=== PATIENT | female | born 1965 | race Caucasian/White ===

== ENCOUNTER 2023-01-28 09:39 | Day surgery (SDC) | payer OTHER, SELFPAY ==
--- NOTE | 2023-01-27 14:45 | P.CONAN_ITS ---
Documented by User: Ashley Rincon NP 01/27/23 14:46 HPI - Anesthesia Eval Consult details Narrative: 57yo F for Colonoscopy [facility] Past Medical History Medical History (Updated 01/28/23 @ 10:48 by Eva Yu RN) Anxiety Colon polyps Follicular lymphoma HTN (hypertension) Hypothyroidism Insomnia Surgical History Surgical History (Updated 01/27/23 @ 14:41 by Janna Escoto RN) Hx of cholecystectomy Social History Social History Patient Tobacco Use Status: Never used Tobacco Use of substances other than those prescribed or required for medical reasons: No Are you DNR?: No Advance Directives: No Advance Directives Information Provided: Yes Recently lost weight without trying: No Nutrition Risks: No Nutritional Risk Meds Allergies Allergy/AdvReac Type Severity Reaction Status Date / Time No Known Allergies Allergy Verified 01/27/23 14:40 Home Medications Medication Instructions Recorded Confirmed Last Taken Type atorvastatin 40 mg tablet 40 mg PO DAILY 01/27/23 01/27/23 Unknown History carvedilol 12.5 mg tablet 12.5 mg PO BID 01/27/23 01/27/23 Unknown History lamotrigine 200 mg tablet 200 mg PO DAILY 01/27/23 01/27/23 Unknown History levothyroxine 75 mcg tablet 75 mcg PO DAILY 01/27/23 01/27/23 Unknown History omeprazole 20 mg capsule,delayed 20 mg PO DAILY 01/27/23 01/27/23 Unknown History release quetiapine 50 mg tablet (Seroquel) 50 mg PO BEDTIME 01/27/23 01/27/23 Unknown History Exam Exam Date and Time: January 27, 2023 144 Assessment and Plan Assessment Anesthesia Assessment: Chart Reviewed Documented by User: Shaista Starr MD 01/28/23 11:25 [facility] Past Medical History Medical History (Updated 01/28/23 @ 10:48 by Eva Yu RN) Anxiety Colon polyps Follicular lymphoma HTN (hypertension) Hypothyroidism Insomnia Family History Family history of problems with anesthesia: No Surgical History Surgical History (Updated 01/27/23 @ 14:41 by Janna Escoto RN) Hx of cholecystectomy History of Problems with Anesthesia: No Social History Social History Patient Tobacco Use Status: Never used Tobacco Use of substances other than those prescribed or required for medical reasons: No Are you DNR?: No Advance Directives: No Advance Directives Information Provided: Yes Recently lost weight without trying: No Nutrition Risks: No Nutritional Risk Meds Allergies Allergy/AdvReac Type Severity Reaction Status Date / Time No Known Allergies Allergy Verified 01/27/23 14:40 Home Medications Medication Instructions Recorded Confirmed Last Taken Type atorvastatin 40 mg tablet 40 mg PO DAILY 01/27/23 01/27/23 Unknown History carvedilol 12.5 mg tablet 12.5 mg PO BID 01/27/23 01/27/23 Unknown History lamotrigine 200 mg tablet 200 mg PO DAILY 01/27/23 01/27/23 Unknown History levothyroxine 75 mcg tablet 75 mcg PO DAILY 01/27/23 01/27/23 Unknown History omeprazole 20 mg capsule,delayed 20 mg PO DAILY 01/27/23 01/27/23 Unknown History release quetiapine 50 mg tablet (Seroquel) 50 mg PO BEDTIME 01/27/23 01/27/23 Unknown History Exam Airway Mallampati Class: II TM Dist: >3cm Neck ROM: Full Heart: rrr Lungs: cta Assessment and Plan Assessment Anesthesia Assessment: Anesthesia Plan Discussed Final Anesthetic Review Family History of Problems with Anesthesia: No History of Problems with Anesthesia: No NPO: Yes ASA Class: II Final Preanesthetic Review: No Changes in Pt Med Stat, Meds/Allgs Chart Reviewed, Consent Obtained/Reviewed and Anes Risks/Benef Reviewed Patient Risk: Low Procedure Risk: Low Anesthetic Plan Anesthetic Plan: MAC: Disposition: Standard PACU
[2023-01-28 10:49] VITALS: BMI 32.4
[2023-01-28 10:57] VITALS: BP 141/89; PULSE 83; RESP 16; TEMP 36.8; O2SAT 98
[2023-01-28] MEDS: Lactated Ringers 1,000 ML 100 ML IVCONT (11:21)
--- NOTE | 2023-01-28 12:26 | MHC.SHP ---
Pre-Procedural Eval Section A Date of Service: 01/28/23 The patient is an INPATIENT: Yes Changes since office visit: No Cold of Flu in the past 2 weeks, No New Medical Problems, No Changes in Medication and No Patient answered all questions The History & Physical has been completed within 30 days and I have reviewed it.: No Section B Chief Complaint: screening Allergies: Allergies Allergy/AdvReac Type Severity Reaction Status Date / Time No Known Allergies Allergy Verified 01/27/23 14:40 Plan I have reviewed the history and physical and performed a pertinent physical examination on my patient. No changes have occurred unless specified. Time Spent With Patient Time: Total time managing care of this patient today ____ minutes.
--- NOTE | 2023-01-28 13:02 | PM.OP ---
Brief Operative Note Date of Service: 01/28/23 Surgeon: Bobby Day Anesthesia: MAC Was an Risk And Compliance Analytics Director used for this Procedure?: No Estimated blood loss (mL): 0 Pathology: none sent Condition: stable Disposition: PACU
[2023-01-28 13:04] VITALS: BP 116/69; PULSE 76; RESP 16; TEMP 36.4; O2SAT 96
[2023-01-28 13:21] VITALS: BP 132/84; PULSE 77; RESP 16; TEMP 36.4; O2SAT 99
--- NOTE | 2023-01-28 13:37 | OP_ITS ---
DATE OF SERVICE: 01/28/2023 SURGEON: Bobby Day MD INDICATIONS: Colon cancer screening. PREOPERATIVE DIAGNOSIS: POSTOPERATIVE DIAGNOSIS: PROCEDURE PERFORMED: Colonoscopy to the terminal ileum. ESTIMATED BLOOD LOSS: COMPLICATIONS: ANESTHESIA: Monitored anesthesia care. ASSISTANTS: SPECIMENS: DESCRIPTION OF PROCEDURE: A history and physical was performed. The risks and benefits of the procedure were explained to the patient. Informed consent was obtained. The patient was placed in the left lateral decubitus position. A digital rectal exam was performed and was found to be normal. The Olympus pediatric video colonoscope was introduced into the rectum and advanced to the cecum without difficulty. The cecum was identified by transillumination, palpation, and identification of ileocecal valve. Examination was performed. The scope was removed. She tolerated the procedure well and was returned to the recovery area in stable condition. FINDINGS: The terminal ileum was examined and appeared normal. The visualized colonic mucosa was normal. The quality of the prep was good. No polyps were identified. There was mild to moderate sigmoid diverticulosis. Retroflexed examination was normal. IMPRESSION: Normal colonoscopy. RECOMMENDATION: 1. Follow up as needed. 2. Repeat colonoscopy is recommended in 10 years for average risk individuals. MD CINTIA Song/CRAIG / [id number]
== END 2023-01-28 13:35 | disposition home or self-care (01) ==
PROVIDERS: PCP Internal Medicine; Visit Provider Internal Medicine Gastroenterology
PROC: 0DJD8ZZ Inspection of Lower Intestinal Tract, Via Natural or Artificial Opening Endoscopic (ICD-10-PCS; CPT 45378; principal; 2023-01-28 11:20)
DX: Z12.11 Encounter for screening for malignant neoplasm of colon (principal); Z86.010 Personal history of colon polyps; K57.30 Diverticulosis of large intestine without perforation or abscess without bleeding; C82.90 Follicular lymphoma, unspecified, unspecified site; I10 Essential (primary) hypertension; E03.9 Hypothyroidism, unspecified; G47.00 Insomnia, unspecified; Z79.899 Other long term (current) drug therapy; Z90.49 Acquired absence of other specified parts of digestive tract
CPT/HCPCS: 45378